=== PATIENT | male | born 1940 | race Caucasian/White ===

== ENCOUNTER → 2024-05-04 11:16 | Outpatient (REF) | payer MEDICARE, OTHER, SELFPAY ==
[2024-05-04 16:53] LABS: % Basophils 1.2 % (0-2); % Eosinophils 6.8 % (0-6); % Immature Granulocytes 0.6 % (0-0.5); % Lymphocytes 24.6 % (20.5-51.1); % Monocytes 7.6 % (1.7-9.3); % Neutrophils 59.2 % (42.2-75.2); Absolute Basophils 0.1 10^3/uL (0-0.2); Absolute Eosinophils 0.5 10^3/uL (0-0.7); Absolute Lymphocytes 1.7 10^3/uL (1.2-3.4); Absolute Monocytes 0.5 10^3/uL (0.1-0.6); Absolute Neutrophils 4.1 10^3/uL (1.4-6.5); Hematocrit 46.3 % (39.0-52.0); Hemoglobin 15.1 g/dL (13.0-18.0); Mean Corp Hgb Conc. 32.6 g/dL (33.0-37.0); Mean Corpuscular Hgb 28.7 pg (27.0-31.0); Mean Platelet Volume 11.3 fL (7.4-10.4); Nucleated Red Blood Cells % 0 % (-); Platelet Count 253 10^3/uL (130-400); Red Blood Cell Count 5.26 10^6/uL (4.70-6.10); Red Cell Dist. Width 14.1 % (11.5-14.5); White Blood Cell Count 6.9 10^3/uL (4.8-10.8)
== END ==
LOC: HWRAD 11:16
PROVIDERS: ATTENDING PHYSICIAN Nurse Practitioner Adult Health; FAMILY PHYSICIAN Internal Medicine; REFERRING PHYSICIAN Internal Medicine Cardiovascular Disease
DX: R06.09 Other forms of dyspnea (principal)
CPT/HCPCS: 36415; 71046; 85025

== ENCOUNTER 2025-04-23 10:07 | Emergency (ER) | payer MEDICARE, OTHER, SELFPAY ==
[2025-04-23 10:53] VITALS: BMI 27.1
[2025-04-23 10:54] VITALS: BP 148/88
[2025-04-23 11:00] VITALS: BP 116/94
--- NOTE | 2025-04-23 11:23 | ED.GENMED ---
History of Present Illness
General
Chief Complaint: Fall
Time Seen by Provider: 04/23/25 11:23
History of Present Illness
History of Present Illness:
FOCUSED PAST MEDICAL HISTORY
- Asthma, has had PE, on Eliquis
REVIEW OF OLD RECORDS
- I reviewed records, the patient had endoscopy in 2021
Note:
CHIEF COMPLAINT(S)
Fall, resulting in pain and swelling in the right hand, and pain in the left elbow.
HISTORY OF PRESENT ILLNESS
The patient is an 84-year-old male who presented to the emergency room after experiencing a fall, attributed to a chronic foot drop condition. The patient reports that while attempting to catch himself, he fell and sustained injuries predominantly
on the right and left sides of his body. On examination, the patient has a fracture of the right hand, which is not displaced and should heal on its own. The patient describes this injury as causing significant swelling and pain, particularly
impacting the right hands strength. Additionally, the patient complains of pain at the left elbow, notably at the inside part of the elbow. There is no report of pain in the chest, abdomen, or head, and the patient denies any bruising except on the
right side where visible. The patient was advised to follow up with an orthopedic doctor and provided with a splint for the hand.
PHYSICAL EXAM
General: Alert, no acute distress.
Skin: Warm, dry.
Head: Normocephalic, atraumatic.
Neck: Supple, trachea midline.
Eye Ears, nose, mouth, and throat: Oral mucosa moist.
Cardiovascular: Normal peripheral perfusion, No edema.
Respiratory: Respirations are non-labored.
Gastrointestinal: Abdomen nondistended.
Back: Normal range of motion, Normal alignment.
Musculoskeletal: Decreased range of motion in the left elbow due to pain; swelling, ecchymosis and tenderness dorsum of the right hand
Neurological: Alert and oriented to person, place, time, and situation, No focal neurological deficit observed.
Psychiatric: Cooperative, appropriate mood & affect.
PROBLEM LIST
Acute:
1. Right hand fracture with swelling.
2. Pain and decreased range of motion in left elbow.
PLAN
1. Provide a splint for the right hand to aid in healing.
2. Referral to an software quality specialist for follow-up care regarding the right hand fracture.
3. Review of x-rays to confirm injury assessment. Additional x-rays may be needed for accurate diagnosis.
DIFFERENTIAL DIAGNOSIS
The Differential Diagnosis includes, in no particular order and is not limited to:
1. Fracture of the right hand.
2. Olecranon bursitis.
3. Contusion.
4. Hematoma.
5. Ligamentous injury.
6. Tendon injury.
7. Joint dislocation.
8. Soft tissue injury.
9. Nerve compression syndrome.
10. Tendinitis.
Disposition:
SUMMARY OF ENCOUNTER
The patient, an 84-year-old male, presented to the emergency department following a fall. The patient has a known chronic condition of foot drop which contributed to the fall. The main injuries noted were pain and swelling in the right hand and pain
in the left elbow. X-rays were performed to assess the injuries, particularly in the elbow area. The exam showed no significant fractures or dislocations visible on the x-ray. The assessment suggests soft tissue injury possibly due to strain,
stretching, or minor bleeding within the muscles was discussed as the potential cause of pain. A splint was provided for the right hand. The patient was also offered a sling for added support on the left side. Recommendations were made for follow-up
with an software quality specialist to ensure appropriate management of the hand fracture.
PLAN
The patient is to receive a splint for the right hand and a sling for the left elbow. Follow-up with an software quality specialist has been recommended to reassess and manage the injuries adequately. The patient is advised to take acetaminophen for pain
management as it poses the least risk compared to other anti-inflammatory medications due to potential interactions with blood thinners.
INDEPENDENT REVIEW OF LABS AND INTERPRETATION OF TESTS
My independent interpretation of the x-ray indicates there are no majorly displaced fracture fragments, and the elbow is not dislocated. However, soft tissue injury is a possibility despite the normal x-ray findings.
PATIENT EDUCATION AND COUNSELING
The patient was informed about the nature of their injuries and that the current treatment plan includes immobilization using a splint and a sling for comfort and support, particularly focusing on the hand and elbow. It was explained that the x-ray
results do not show a significant fracture, but soft tissue damage is common with such falls and may cause substantial pain.
FOLLOW-UP INSTRUCTIONS
The patient was instructed to follow up with an software quality specialist for a detailed evaluation and potential treatment of the hand fracture. The contact information for an orthopedic doctor was provided.
MEDICATION RECONCILIATION
Acetaminophen was recommended for pain management. A discussion occurred regarding the use of cyclobenzaprine (Flexeril), which was not recommended due to its potential to increase fall risks and minimal benefit in pain relief.
MEDICAL DECISION MAKING
- Complexity of Data Reviewed: Chronic conditions affecting care including chronic foot drop. Differential diagnosis includes fracture of the right hand, olecranon bursitis, contusion, hematoma, ligamentous injury, tendon injury, joint dislocation,
soft tissue injury, nerve compression syndrome, and tendinitis.
- Data:
Category 1: X-ray independently reviewed showing no significant fracture or dislocation.
Category 2: Information obtained from the patients history and physical exam observations.
- Risk: Prescription medication was discussed but acetaminophen was determined to be the safest option due to its lower risk of complications in elderly patients on blood thinners.
DIAGNOSIS
1. Right hand fracture, uncomplicated (ICD-10: S62.91XA)
2. Left elbow pain, unspecified (ICD-10: M25.522)
3. Chronic foot drop (ICD-10: M21.371)
RADIOLOGY
- Right hand x-ray shows a fracture of the proximal to mid shaft of the right middle metacarpal
- Right forearm x-ray shows no fracture
Past History
Past History
ED Past Medical History: Arrthythmia (atrial fibrillation), Asthma, GERD, HTN, Hypercholesterolemia, Hypothyroidism and Other (Pituitary tumor, syncope episodes community-acquired pneumonia pulmonary embolus, depression, right iliopsoas/hip flexor
muscle spasms.)
ED Past Surgical History: Orthopedic (Bilateral hip replacements), Tonsilectomy and Other (pituitary tumor resection, left and right hip surgery, removal of kidney stone, vasectomy)
Social History
Tobacco: Non-smoker
Alcohol: None
Drug: None
Personal:
Living: with family
Employment: Employed
Family History
Family History: Negative Diabetes or Early CAD
Phy Exam
Physical Exam
Physical Exam:
See HPI
Course
Orders/Labs/Results
Orders:
Orders
04/23/25 10:13
Forearm, Left 2 View [CR Forearm - Left 2 View] Urgent
Comment:
Reason For Exam: fall
Hand, Right 3 View [CR Hand - Right Min 3 Views] Urgent
Comment:
Reason For Exam: fall
04/23/25 11:56
Splints/Slings/Crut- Treatment ONCE
Crutches: No
Sling to: Left Arm
Location: Right
Type of Splint: [place] Wrist
Vital Signs
Initial and Last Documented VS:
Initial Vital Signs
Temp Pulse Resp Pulse Ox
36.9 C 88 16 96
04/23/25 10:09 04/23/25 10:09 04/23/25 10:09 04/23/25 10:09
Last Documented Vital Signs
Temp Pulse Resp BP Pulse Ox
36.9 C 84 18 142/91 93
04/23/25 10:09 04/23/25 12:00 04/23/25 11:00 04/23/25 12:00 04/23/25 12:00
*Pulse Oximetry
SaO2: 93
Oxygen Mode of Delivery: Room air
Patient hypoxic: no
*Critical Care Note
Total Time (30-74mins, 75-104mins- exclusive of procedures): Not Applicable
ED Attending Note
-
Portions of this chart may have been created with voice recognition software.� Occasional wrong word or��sound alike� substitutions may have occurred due to the inherent limitations of voice recognition software.
Discharge Plan
Departure
Patient Disposition: Home (Routine Discharge)
Date of Disposition: 04/23/25
Time of Disposition: 11:58
Patient with high blood pressure during this ER visit?: Yes
Discharge Problem:
Fracture of metacarpal
Instructions: Contusion (DC), Hand Fracture ED, BLOOD PRESSURE
Prescriptions:
No Action
levothyroxine [Synthroid] 100 MCG tablet
100 mcg PO QPM
escitalopram oxalate 10 MG tablet
10 mg PO DAILY
armodafinil [Nuvigil] 250 MG tablet
250 mg PO PRN PRN (Reason: 'to keep me awake.'')
Dulera 1 PUFF HFA aerosol inhaler
100 mcg IH BID PRN (Reason: shortness of breath)
verapamil 120 MG tablet
120 mg PO BID
flecainide 50 MG tablet
50 mg PO Q12H
amlodipine-benazepril 10-20 mg Capsule
1 cap PO DAILY
rosuvastatin 40 mg Tablet
40 mg PO DAILY
Eliquis 5 mg Tablet
5 mg PO Q12
Dupixent Syringe 300 mg/2 mL Syringe
300 mg SC Q2W
Referrals:
Omar Estrada MD [Active, Orthopedics]
Francisco Blair DO [Family Provider, Internal Medicine]
Activity Restrictions/Additional Instructions:
I have given you the contact information for a local orthopedist that you could follow-up with, Dr. Estrada. Tylenol would be safest for pain. Return if worse or other concerns. We have placed universal splint for the right hand fracture and you
can use a sling to the left side for comfort related to injury of the left forearm. There is no sign of broken bone of the left forearm or elbow.
Interventions
Interventions:
*Risk Screen - Suicide Last Done: 04/23/25 10:09
*General Assessment Last Done: 04/23/25 10:55
*Neglect/Abuse Screening Last Done: 04/23/25 10:09
*ED- Fall Risk Assessment Last Done: 04/23/25 10:55
*ED COVID-19 Vaccine History Last Done: 04/23/25 10:55
*ED Influenza Vaccine History Last Done: 04/23/25 10:55
*Nursing Disposition Last Done: 04/23/25 12:21
ED-Musculoskeletal Assessment Last Done: 04/23/25 10:57
ED- Neurological Assessment Last Done: 04/23/25 10:57
ED-Skin Assessment Last Done: 04/23/25 11:02
Discharge Date and Time
Discharge Date/Time: 04/23/25 12:24
Print Language: LITHUANIAN
[2025-04-23 12:00] VITALS: BP 142/91
== END 2025-04-23 12:24 | disposition home or self-care (01) ==
LOC: EMR 10:07
PROVIDERS: EMERGENCY PHYSICIAN Emergency Medicine; FAMILY PHYSICIAN Internal Medicine
DX: S62.322A Displaced fracture of shaft of third metacarpal bone, right hand, initial encounter for closed fracture (principal); W19.XXXA Unspecified fall, initial encounter; J45.909 Unspecified asthma, uncomplicated; E03.9 Hypothyroidism, unspecified; E78.00 Pure hypercholesterolemia, unspecified; I10 Essential (primary) hypertension; I48.91 Unspecified atrial fibrillation; Z86.711 Personal history of pulmonary embolism
CPT/HCPCS: 29125; 99283; 73090; 73130